=== PATIENT | male | born 1960 | race Caucasian/White ===

== ENCOUNTER 2022-10-14 14:34 | Outpatient (CLI) | payer OTHER | END 2022-10-14 14:35 | disposition home or self-care (01) | LOC: NAV RAD 14:34 | PROVIDERS: ATTEND Family Medicine | DX: M25.561 Pain in right knee (principal); I48.0 Paroxysmal atrial fibrillation; E11.9 Type 2 diabetes mellitus without complications; M17.11 Unilateral primary osteoarthritis, right knee; I51.7 Cardiomegaly | CPT/HCPCS: 71046 ==